=== PATIENT | female | born 1985 ===

== ENCOUNTER → 2016-08-08 | Outpatient (CLI) | payer OTHER | LOC: MOB LAB 11:58 | PROVIDERS: ATTEND Physician Assistant | DX: N39.0 Urinary tract infection, site not specified (principal) | CPT/HCPCS: 87088 ==

== ENCOUNTER → 2016-08-30 | Outpatient (CLI) | payer OTHER ==
[2016-08-30 10:33] LABS: HEMATOCRIT 43.3 % (37.0-47.0); HEMOGLOBIN 14.3 g/dL (12.0-16.0); MEAN CORPUSCULAR HEMOGLOBIN 29.2 PG (27-31); MEAN CORPUSCULAR VOLUME 88.5 FL (81-99); RED BLOOD COUNT 4.89 10^6/uL (4.20-5.40)
[2016-08-30 10:34] LABS: BILIRUBIN,URINE NEGATIVE (NEG); COLOR,URINE YELLOW; GLUCOSE, URINE (UA) NEGATIVE (NEG); NITRATE,URINE NEGATIVE (NEG); OCCULT BLOOD,URINE NEGATIVE (NEG); PROTEIN,URINE NEGATIVE (NEG); UROBILINOGEN,URINE 0.2 mg/dL (0.2)
[2016-08-30 10:38] LABS: CLARITY,URINE CLEAR (CLEAR)
[2016-08-30 10:42] LABS: URINE SAMPLE TYPE CLEAN CATCH URINE
[2016-08-30 10:44] LABS: BACTERIA,URINE FEW; RBC,URINE 0-2 /hpf; SQUAMOUS EPITHELIAL CELL,UR FEW; WBC,URINE 0-2
[2016-08-30 10:48] LABS: BLOOD UREA NITROGEN 22 mg/dL (7-22); CALCIUM 9.4 mg/dL (8.7-10.7); CHOL/HDL RATIO 2.69 RATIO (0-4.0); EST GLOMERULAR FILTRATION > 60 (>60 ml/min/1.73m(2)); HDL CHOLESTEROL 56 mg/dL (40-150); SERUM ALBUMIN 4.4 g/dL (3.5-4.8); SERUM CHOLESTEROL 151 mg/dL (120-200)
[2016-08-30 10:49] LABS: HEMOGLOBIN A1C 5.48 % (4.2-6.0)
[2016-08-30 11:52] LABS: FREE T4 (FREE THYROXINE) 1.05 ng/dL (0.93-1.71)
== END ==
LOC: MOB LAB 09:53
PROVIDERS: ATTEND Nurse Practitioner Family
DX: R53.83 Other fatigue (principal); R30.0 Dysuria
CPT/HCPCS: 80053; 80061; 81001; 82728; 83036; 83540; 83550; 84439; 84443; 85027